=== PATIENT | female | born 2000 | race Caucasian/White ===

== ENCOUNTER 2021-02-12 08:22 | Emergency (ER) | payer MEDICAID ==
[~2021-02-12] VITALS: Ht 154.9 cm; Wt 72.7 kg
[~2021-02-12 08:22] MED LIST: IBUP-1985 PO
[2021-02-12 08:57] LABS: BASOPHILS % (AUTO) 0.3 % (0-1); EOSINOPHILS % (AUTO) 0.1 % (0-6); HEMATOCRIT 41.1 % (35.0-45.0); HEMOGLOBIN 13.5 g/dl (12.0-16.0); LYMPHOCYTES # (AUTO) 1.3 X10'3 (1.1-4.8); LYMPHOCYTES % (AUTO) 16.6 % (21-51); MEAN CORPUSCULAR HEMOGLOBIN 29.7 PG (27.0-31.0); MEAN CORPUSCULAR HGB CONC 32.9 g/dL (33.0-36.5); MEAN CORPUSCULAR VOLUME 90.1 FL (78-98); MEAN PLATELET VOLUME 8.8 FL (7.4-10.4); MONOCYTES # (AUTO) 0.3 X10'3 (0-0.9); MONOCYTES % (AUTO) 4.1 % (2-12); NEUTROPHILS % (AUTO) 78.9 % (42-75); PLATELET COUNT 265 X10'3 (140-440); RED BLOOD COUNT 4.56 X10'6 (4.20-5.60); WHITE BLOOD COUNT 7.7 X10'3 (4.5-11.0)
[2021-02-12 09:13] LABS: ALANINE AMINOTRANSFERASE 23 U/L (12-78); ALBUMIN 4.1 G/DL (3.4-5.0); ALBUMIN/GLOBULIN RATIO 1.1 (1.1-1.5); ALKALINE PHOSPHATASE 51 IU/L (46-116); ANION GAP 10 (8-16); ASPARTATE AMINO TRANSFERASE 19 U/L (10-37); BILIRUBIN,TOTAL 0.5 MG/DL (0.1-1.0); BLOOD UREA NITROGEN 9 MG/DL (7-18); BUN/CREATININE RATIO 12.3 (6.6-38.0); CALCIUM 9.1 MG/DL (8.5-10.1); CHLORIDE 103 MMOL/L (99-107); CREATININE 0.73 MG/DL (0.40-0.90); GLUCOSE 108 MG/DL (70-104); POTASSIUM 3.8 MMOL/L (3.5-5.1); SODIUM 140 MMOL/L (135-145); TOTAL CARBON DIOXIDE 26.9 MMOL/L (24-32); eGFR > 90 ML/MIN
[2021-02-12 09:39] LABS: URINE HCG NEGATIVE (NEG)
[2021-02-12 09:43] LABS: COLOR,URINE YELLOW (Yellow); UA COLLECTION TYPE CLN CATCH MIDSTREAM
[2021-02-12 09:44] LABS: CLARITY,URINE CLOUDY (Clear); GLUCOSE, URINE NEGATIVE (Neg); KETONES,URINE 15 mg/dl (Neg); LEUKOCYTE ESTERASE ,URINE NEGATIVE (Neg); NITRITES, URINE NEGATIVE (Neg); OCCULT BLOOD,URINE NEGATIVE (Neg); PROTEIN,URINE NEGATIVE (Neg); UROBILINOGEN,URINE 0.2 E.U/dL (0.2-1.0)
[2021-02-12 09:51] LABS: AMORPHOUS PHOSPHATES 4+; BACTERIA,URINE 1+ /HPF (Neg); MUCUS STRANDS FEW /LPF (Neg); RBC,URINE NONE SEEN /HPF (0-2); SQUAMOUS EPITHELIAL CELL,UR MANY /LPF (FEW); WBC,URINE 0-4 /HPF (0-4)
[2021-02-12] MEDS ORDERED: NAPR-56 PO (09:55)
[2021-02-12 10:43] VITALS: BP 122/90
== END 2021-02-12 10:46 | disposition home or self-care (01) ==
LOC: ER 08:24
DX: R10.2 Pelvic and perineal pain (principal); R11.2 Nausea with vomiting, unspecified; R19.7 Diarrhea, unspecified; R10.31 Right lower quadrant pain; F12.90 Cannabis use, unspecified, uncomplicated; Z79.899 Other long term (current) drug therapy
CPT/HCPCS: 36415; 76830; 76856; 80053; 81001; 81025; 85025; 93976; 99284

== ENCOUNTER 2024-04-26 13:54 | Emergency (ER) | payer MEDICAID ==
[~2024-04-26] VITALS: Ht 154.9 cm; Wt 81.8 kg
[2024-04-26 13:58] VITALS: BP 142/95; PULSE 76; RESP 18; TEMP 97.2; O2SAT 97
[2024-04-26] MEDS: TETanus/Pertussis (Acell)/Diphther VAC/PF (Tdap-Adult) 0.5ml syringe IMVAC ONE (15:46)
== END 2024-04-26 15:56 | disposition home or self-care (01) ==
LOC: ER 13:54
DX: S61.012D Laceration without foreign body of left thumb without damage to nail, subsequent encounter (principal); F12.90 Cannabis use, unspecified, uncomplicated; F41.9 Anxiety disorder, unspecified; X58.XXXD Exposure to other specified factors, subsequent encounter
CPT/HCPCS: 90471; 90715; 99281

== ENCOUNTER 2024-10-17 16:08 | Outpatient (CLI) | payer MEDICAID ==
--- NOTE | 2024-10-17 20:29 | RADIOLOGY REPORT ---
EXAM: CT CT ORBITS CLINICAL HISTORY: OTALGIA OF BOTH EARS TECHNIQUE: Multiple contiguous axial images were obtained of the facial bones without intravenous con trast. Sagittal and coronal reformations were obtained. This exam was performed according to our depa rtmental dose optimization program. Up-to-date CT equipment and radiation dose reduction techniques a re utilized as appropriate. Comparison: None FINDINGS: Trace mucosal thickening of the bilateral maxillary sinuses. The mastoid air cells and visualized par anasal sinuses are otherwise well-aerated. The globes and orbits are normal in appearance without CT evidence of orbital hemorrhage. The extraocular muscles are intact. No facial or orbital wall fractur e is identified. The temporomandibular joints are maintained. IMPRESSION: No acute abnormality.
== END 2024-10-17 23:59 | disposition home or self-care (01) ==
LOC: 64 CT 16:08
PROVIDERS: ATTEND Nurse Practitioner Occupational Health
DX: H92.03 Otalgia, bilateral (principal)
CPT/HCPCS: 70480